=== PATIENT | male | born 1975 | race Native Hawaiian/Other Pacific Islander ===

== ENCOUNTER 2021-10-19 11:25 | Emergency (ER) | payer SELFPAY ==
[2021-10-19 14:51] LABS: Basophils % (Auto) 0.7 % (0.0-1.8); Eosinophils # (Auto) 0.1 K/mm3 (0.0-0.4); Eosinophils % (Auto) 1.1 % (0.0-4.3); Hemoglobin 15.4 gm/dl (11.8-15.2); Lymphocytes # (Auto) 1.6 K/mm3 (1.2-5.4); Lymphocytes % (Auto) 24.3 % (13.4-35.0); Mean Corpuscular HGB Conc 34 % (32-34); Mean Corpuscular Volume 94 fl (84-94); Monocytes # (Auto) 0.4 K/mm3 (0.0-0.8); Monocytes % (Auto) 5.5 % (0.0-7.3); Platelet Count 321 K/mm3 (140-440); Red Blood Count 4.91 M/mm3 (3.65-5.03); Red Cell Distribution Width 14.3 % (13.2-15.2)
--- NOTE | 2021-10-19 14:59 | XRay Report ---
CHEST 2 VIEWS INDICATION / CLINICAL INFORMATION: Dyspnea. COMPARISON: None available. FINDINGS: SUPPORT DEVICES: None. HEART / MEDIASTINUM: No significant abnormality. LUNGS / PLEURA: No significant pulmonary or pleural abnormality. No pneumothorax. ADDITIONAL FINDINGS: No significant additional findings. IMPRESSION: 1. No acute findings. Signer Name: Alfred Beltran MD Signed: 10/19/2021 2:55 PM Workstation Name: [email or web address]
[2021-10-19 15:12] LABS: Creatine Kinase MB 4.6 ng/mL (0.0-4.0)
[2021-10-19 15:14] LABS: Alanine Aminotransferase 15 units/L (7-56); Albumin 4.4 g/dL (3.9-5); BUN/Creatinine Ratio 13; Blood Urea Nitrogen 15 mg/dL (9-20); Calcium 9.2 mg/dL (8.4-10.2); Hemolysis Index 13
[2021-10-19] MEDS ORDERED: IPRATROPIUM/ALBUTEROL SULFATE 3 ML AMPUL.NEB IH ONE (23:51)
[2021-10-19] MEDS ORDERED: predniSONE 20 MG TAB PO ONE (23:51)
[2021-10-19] MEDS ORDERED: ACETAMINOPHEN 500 MG TAB PO ONE (23:51)
--- NOTE | 2021-10-20 00:12 | Emergency Department Report ---
ED General Adult HPI - General Chief complaint: Dyspnea/Respdistress Stated complaint: PAIN IN BACK Time Seen by Provider: 10/19/21 23:46 Source: patient Mode of arrival: Ambulatory Limitations: No Limitations - History of Present Illness Initial comments: Patient 46-year-old male presents for shortness of breath and dyspnea for 1 week. There is no fevers no chills symptoms are exacerbated by activity. Symptoms are relieved by nothing tried patient denies chest pain denies nausea vomiting denies fevers or chills cough is productive clear. Has secondary complaint of abscess left upper back for the past year now with fluctuance and drainage. No malaise or fever. Patient is a [id number] smoker - Related Data Previous Rx's Medication Instructions Recorded Last Taken Type Ibuprofen [Motrin] 600 mg PO Q8H PRN #30 tablet 06/04/13 Unknown Rx traMADoL [Ultram 50 MG tab] 50 mg PO Q6HR PRN #20 tablet 06/04/13 Unknown Rx Albuterol Mdi (or & Nicu Only) 2 puff IH QID PRN #8.5 gram 10/20/21 Unknown Rx [ProAir HFA Inhaler] Azithromycin 500 mg PO DAILY 5 Days #5 tab 10/20/21 Unknown Rx Furosemide [Lasix TAB] 40 mg PO QDAY 3 Days #3 tablet 10/20/21 Unknown Rx lisinopriL [Lisinopril] 10 mg PO DAILY #30 tab 10/20/21 Unknown Rx predniSONE [Deltasone] 20 mg PO QDAY 5 Days #5 tab 10/20/21 Unknown Rx Allergies Allergy/AdvReac Type Severity Reaction Status Date / Time No Known Allergies Allergy Verified 06/04/13 01:43 ED Review of Systems ROS: Stated complaint: PAIN IN BACK Other details as noted in HPI Constitutional: denies: chills, fever Eyes: denies: eye pain, eye discharge, vision change ENT: denies: ear pain, throat pain Respiratory: shortness of breath, wheezing. denies: cough, stridor Cardiovascular: denies: chest pain, palpitations Endocrine: no symptoms reported Gastrointestinal: denies: abdominal pain, nausea, vomiting, diarrhea Genitourinary: denies: urgency, dysuria Musculoskeletal: denies: back pain, joint swelling, arthralgia Skin: other (Abscess left upper lateral back). denies: rash, lesions Neurological: denies: headache, weakness, paresthesias Psychiatric: denies: anxiety, depression Hematological/Lymphatic: denies: easy bleeding, easy bruising ED Past Medical Hx - Past Medical History Previous Medical History?: No - Surgical History Past Surgical History?: No - Social History Smoking Status: Current Every Day Smoker Substance Use Type: None - Medications Home Medications: Home Medications Medication Instructions Recorded Confirmed Last Taken Type Ibuprofen [Motrin] 600 mg PO Q8H PRN #30 tablet 06/04/13 Unknown Rx traMADoL [Ultram 50 MG tab] 50 mg PO Q6HR PRN #20 tablet 06/04/13 Unknown Rx Albuterol Mdi (or & Nicu Only) 2 puff IH QID PRN #8.5 gram 10/20/21 Unknown Rx [ProAir HFA Inhaler] Azithromycin 500 mg PO DAILY 5 Days #5 tab 10/20/21 Unknown Rx Furosemide [Lasix TAB] 40 mg PO QDAY 3 Days #3 tablet 10/20/21 Unknown Rx lisinopriL [Lisinopril] 10 mg PO DAILY #30 tab 10/20/21 Unknown Rx predniSONE [Deltasone] 20 mg PO QDAY 5 Days #5 tab 10/20/21 Unknown Rx ED Physical Exam - General Limitations: No Limitations General appearance: alert, in no apparent distress - Head Head exam: Present: normocephalic, normal inspection - Eye Eye exam: Present: EOMI Pupils: Present: normal accommodation - ENT ENT exam: Present: normal orophraynx, mucous membranes moist - Neck Neck exam: Present: normal inspection, full ROM. Absent: tenderness, lymphadenopathy, thyromegaly - Respiratory Respiratory exam: Present: normal lung sounds bilaterally, wheezes. Absent: respiratory distress, rales, rhonchi, stridor, chest wall tenderness - Expanded Respiratory Exam Expanded Location: Wheezes: Right, Left, Upper - Cardiovascular Cardiovascular Exam: Present: regular rate, normal rhythm, normal heart sounds. Absent: systolic murmur, diastolic murmur, rubs, gallop - GI/Abdominal GI/Abdominal exam: Present: soft, normal bowel sounds. Absent: distended, tenderness, guarding, rebound, rigid, bruit, hernia - Rectal Rectal exam: Present: deferred - Extremities Exam Extremities exam: Present: normal inspection, full ROM, normal capillary refill. Absent: pedal edema - Back Exam Back exam: Present: normal inspection, full ROM. Absent: CVA tenderness (R), CVA tenderness (L) - Neurological Exam Neurological exam: Present: alert, oriented X3, CN II-XII intact, normal gait - Psychiatric Psychiatric exam: Present: normal affect, normal mood - Skin Skin exam: Present: warm, dry, intact, normal color, other (Abscess left upper back number 2 cm fluctuant erythema warm to touch). Absent: rash ED Course Vital Signs 10/19/21 10/20/21 14:12 02:29 Temperature 98.4 F Pulse Rate 75 78 Respiratory 18 Rate Blood Pressure 142/97 142/96 O2 Sat by Pulse 100 Oximetry - I & D Left Upper Posterior Lateral Back Type of Procedure: Simple (Left posterior lateral back abscess 1 x 2 cm fluctuan t erythema) Site: Left posterior lateral back abscess 1 x 2 cm fluctuant erythema Blade Size: 11 I & D Procedure: betadine prep, sterile drapes applied, sterile dressing applied Progress: Abscess 1 x 2 cm fluctuant erythema left upper back. Site cleaned with Betadine solution, anesthesia 1% lidocaine x3 cc anesthesia is achieved. Incision with 11 blade scalpel, loculations broken up with six-inch blunt forceps. Moderate purulent output. Irrigated with 20 cc sterile saline. Sterile dressing applied all bleeders controlled patient tolerated procedure with minimal distress. ED Medical Decision Making - Lab Data Result diagrams: 10/19/21 14:30 10/19/21 14:30 Labs 10/19/21 10/19/21 10/19/21 14:30 14:30 14:30 WBC 6.5 RBC 4.91 Hgb 15.4 H Hct 46.0 H MCV 94 MCH 31 MCHC 34 RDW 14.3 Plt Count 321 Lymph % (Auto) 24.3 [place] % (Auto) 5.5 Eos % (Auto) 1.1 Baso % (Auto) 0.7 Lymph # (Auto) 1.6 [place] # (Auto) 0.4 Eos # (Auto) 0.1 Baso # (Auto) 0.0 Seg Neutrophils % 68.4 Seg Neutrophils # 4.4 D-Dimer 267.35 H Sodium 141 Potassium 5.2 H Chloride 105.8 Carbon Dioxide 25 Anion Gap 15 BUN 15 Creatinine 1.2 Estimated GFR > 60 BUN/Creatinine Ratio 13 Glucose 118 H Calcium 9.2 Total Bilirubin 0.50 AST 17 ALT 15 Alkaline Phosphatase 128 Total Creatine Kinase 179 H CK-MB (CK-2) 4.6 H CK-MB (CK-2) Rel Index 2.5 Troponin T < 0.010 Total Protein 6.8 Albumin 4.4 Albumin/Globulin Ratio 1.8 - EKG Data EKG shows normal: sinus rhythm Rate: normal - EKG Data When compared to previous EKG there are: previous EKG unavailable Interpretation: LVH (Sinus rhythm, ventricular premature complex, probable left atrial enlargement, LVH with secondary repolarization abnormality, no ST elevated NH interpreted by ED attending.) - Radiology Data Radiology results: report reviewed, image reviewed CHEST 2 VIEWS INDICATION / CLINICAL INFORMATION: Dyspnea. COMPARISON: None available. FINDINGS: SUPPORT DEVICES: None. HEART / MEDIASTINUM: No significant abnormality. LUNGS / PLEURA: No significant pulmonary or pleural abnormality. No pneumothorax. ADDITIONAL FINDINGS: No significant additional findings. IMPRESSION: 1. No acute findings. Signer Name: Alfred Beltran MD Signed: 10/19/2021 2:55 PM Workstation Name: [facility] Transcribed By: CHULA Dictated By: Alfred Beltran MD Electronically Authenticated By: Alfred Beltran MD Signed Date/Time: 10/19/211454 DD/ 53 TD/TT: CTA CHEST WITH IV CONTRAST INDICATION: Chest pain with dyspnea TECHNIQUE: Axial CT images were obtained through the chest after injection of 100 mL Omnipaque 350 IV contrast. 3 plane MIP reconstructions were produced. All CT scans at this location are performed using CT dose reduction for ALARA by means of automated exposure control. COMPARISON: None available. FINDINGS: PULMONARY ARTERIES: No pulmonary emboli. Exam is somewhat limited by respiratory motion artifact. AORTA AND ARTERIES: No acute abnormality. MEDIASTINUM: Severe cardiomegaly with evidence of hepatic congestion. Mild mediastinal adenopathy. LUNGS: Small pleural effusions noted bilaterally. There is trace interstitial edema. There is a spiculated area of density measuring 8 mm within the left upper lobe.. Coronary artery calcification: Moderate. UPPER ABDOMEN: No acute findings. BONES: No significant osseous abnormality. IMPRESSION: 1. No CT evidence for pulmonary embolism. See above comments. 2. Cardiomegaly with evidence of interstitial edema/congestive heart failure. Small bilateral pleural effusions 3. Several tiny nodular densities are scattered throughout both lungs that are mostly groundglass appearance but there is a more irregular consolidative nodule within the left upper lobe that measures 8 mm in diameter. While this could be an inflammatory nodule this is ultimately nonspecific. Recommend [address] chest follow-up as neoplasm is not excluded at this time Signer Name: Reza Ge MD Signed: 10/20/2021 1:10 AM Workstation Name: [id number] Transcribed By: Dictated By: Reza Ge MD Electronically Authenticated By: Reza Ge MD Signed Date/Time: 10/20/21109 DD/ 6 TD/TT: - Medical Decision Making D-dimer automated in triage per protocol, elevated at 267.35, labs noted EKG sinus rhythm PVCs probable left atrial enlargement LVH secondary to repolarization abnormality no ST elevated NH interpreted by ED attending. Chest x-ray normal no infiltrates no opacities , patient has voided multiple times with Lasix IV, BP is normal at this time. Lung sounds remain clear throughout patient has ambulated from room to restroom and returned to room without increased shortness of breath wheezing is resolved. Plan DC to home, diagnosis, CHF exacerbation, plan DC to home with prescriptions, follow-up with cardiology as scheduled. Follow-up with primary care doctor as scheduled. Return to emergency department should symptoms worsen. Patient verbalizes agreement and understanding of discharge plan patient DC to home in stable condition at this time patient is currently alert oriented x3 ambulatory with steady gait there is no acute distress at this time. Critical care attestation.: If time is entered above; I have spent that time in minutes in the direct care of this critically ill patient, excluding procedure time. ED Disposition Clinical Impression: CAP (community acquired pneumonia) Qualifiers: Laterality: right Lung location: lower lobe of lung Qualified Code(s): J18.9 - Pneumonia, unspecified organism CHF (congestive heart failure) Qualifiers: Heart failure type: unspecified Heart failure chronicity: chronic Qualified Code(s): I50.9 - Heart failure, unspecified Disposition: 01 HOME / SELF CARE / HOMELESS Is pt being admited?: No Does the pt Need Aspirin: No Condition: Stable Instructions: Bacterial Pneumonia (ED), Heart Failure, Self Care, [id number], Community-Acquired Pneumonia, Adult, [id number] Additional Instructions: Take medications as prescribed, follow-up with cardiology in 2 to 3 days, follow-up with your primary care doctor in 2 to 3 days. Return to emergency d epartment should symptoms worsen. Prescriptions: Azithromycin 500 mg PO DAILY 5 Days #5 tab predniSONE [Deltasone] 20 mg PO QDAY 5 Days #5 tab Furosemide [Lasix TAB] 40 mg PO QDAY 3 Days #3 tablet lisinopriL [Lisinopril] 10 mg PO DAILY #30 tab Albuterol Mdi (or & Nicu Only) [ProAir HFA Inhaler] 2 puff IH QID PRN #8.5 gram PRN Reason: Shortness Of Breath Referrals: ALANA OMALLEY MD [Primary Care Provider] - ELOY DIONTE LUCIO MD [Staff Physician] - ELOY Forms: Work/School Release Form(ED) Time of Disposition: 02:56
[2021-10-20] MEDS ORDERED: SODIUM CHLORIDE 0.9% 1000 ML 1,000 ML IV ONE (00:17)
[2021-10-20 00:32] LABS: Color,Urine Yellow (Yellow)
[2021-10-20 00:34] LABS: Bacteria,Urine 1+ /HPF (Negative); Mucus,Urine 1+ /HPF; RBC,Urine < 1.0 /HPF (0.0-6.0); WBC,Urine < 1.0 /HPF (0.0-6.0)
--- NOTE | 2021-10-20 01:14 | Cat Scan Report ---
CTA CHEST WITH IV CONTRAST INDICATION: Chest pain with dyspnea TECHNIQUE: Axial CT images were obtained through the chest after injection of 100 mL Omnipaque 350 IV contrast. 3 plane MIP reconstructions were produced. All CT scans at this location are performed using CT dose reduction for ALARA by means of automated exposure control. COMPARISON: None available. FINDINGS: PULMONARY ARTERIES: No pulmonary emboli. Exam is somewhat limited by respiratory motion artifact. AORTA AND ARTERIES: No acute abnormality. MEDIASTINUM: Severe cardiomegaly with evidence of hepatic congestion. Mild mediastinal adenopathy. LUNGS: Small pleural effusions noted bilaterally. There is trace interstitial edema. There is a spicu lated area of density measuring 8 mm within the left upper lobe.. Coronary artery calcification: Moderate. UPPER ABDOMEN: No acute findings. BONES: No significant osseous abnormality. IMPRESSION: 1. No CT evidence for pulmonary embolism. See above comments. 2. Cardiomegaly with evidence of interstitial edema/congestive heart failure. Small bilateral pleural effusions 3. Several tiny nodular densities are scattered throughout both lungs that are mostly groundglass gia earance but there is a more irregular consolidative nodule within the left upper lobe that measures 8 mm in diameter. While this could be an inflammatory nodule this is ultimately nonspecific. Recommend [address] chest follow-up as neoplasm is not excluded at this time Signer Name: Reza Ge MD Signed: 10/20/2021 1:10 AM Workstation Name: [employer]
[2021-10-20] MEDS ORDERED: cefTRIAXone/NS 1 GM/50 ML 1 GM/50 ML BAG IV ONE (01:25)
[2021-10-20] MEDS ORDERED: FUROSEMIDE 40 MG/4 ML INJ IV ONE (02:05)
[2021-10-20] MEDS ORDERED: hydrALAZINE 25 MG TAB PO ONE (02:16)
[2021-10-20 02:29] VITALS: BP 142/96
--- NOTE | 2021-10-20 18:08 | Electrocardiograph Report ---
[facility] Test Date: 2021-10-19 Test Time: 14:21:53 Pat Name: FOSTER MAXWELL Department: Room: Gender: M Service Line Layer: JUANJO : 1975 Requested By: ROSALINE WILLETT Order Number: [id number] Reading MD: Qian Carrera Measurements Intervals [place] Rate: 77 P: 76 IN: 175 QRS: 39 QRSD: 109 T: 220 QT: 394 QTc: 446 Interpretive Statements Very poor quality ECG Sinus rhythm Ventricular premature complex No previous ECG available for comparison Electronically Signed On 10-20-2021 18:07:58 EDT by Qian Carrera
== END 2021-10-20 03:07 | disposition home or self-care (01) ==
LOC: ED 11:25
DX: J18.9 Pneumonia, unspecified organism (principal); I50.9 Heart failure, unspecified; F17.200 Nicotine dependence, unspecified, uncomplicated
CPT/HCPCS: 10060; 36415; 71046; 71275; 80053; 81001; 82550; 82553; 83880; 84484; 85025; 85379; 93005; 94640; 96361; 96365; 96375; 99285; J0696; J1940; J7030; Q9967